=== PATIENT | male | born 1990 | race Caucasian/White ===

== ENCOUNTER 2021-02-23 19:38 | Inpatient (IN) ==
[2021-02-23] MEDS ORDERED: Ondansetron 4 MG/2 ML VIAL IVP ONE ×2 (20:08→20:39)
[2021-02-23] MEDS ORDERED: *HR* FentaNYL (PF) 100 MCG/2 ML VIAL IVP ONE (20:08)
[2021-02-23] MEDS ORDERED: Isovue-370 500 ML BOTTLE IVP ONE (20:11)
[2021-02-23 20:13] LABS: Basophils # 0.1 K/mcL (0.0-0.2); Basophils % 0.4 %; Eosinophils % 0.2 %; Hematocrit 43.2 % (37.5-50.1); Hemoglobin 15.6 g/dL (12.9-16.9); Immature Granulocytes % 0.7 % (0-4); Lymphocytes # 1.5 K/mcL (0.6-4.6); Lymphocytes % 12.3 %; Mean Corpuscular HGB Conc 36.1 g/dL (31.6-35.5); Mean Corpuscular Hemoglobin 33.8 pg (28.0-33.3); Mean Corpuscular Volume 93.7 fL (83.0-100.0); Monocytes # 0.9 K/mcL (0.0-1.3); Monocytes % 6.8 %; Neutrophils # 9.9 K/mcL (1.6-8.9); Platelet Count 274 K/mcL (140-400); Red Blood Count 4.61 M/mcL (4.19-5.50); Red Cell Distribution Width 12.6 % (11.5-14.5); Segmented Neutrophils % 79.6 %; White Blood Count 12.5 K/mcL (4.3-11.1)
[2021-02-23] MEDS ORDERED: 0.9 % Sodium Chloride 1,000 ML IVC ONE (20:21)
[2021-02-23] MEDS ORDERED: Piperacillin/Tazobactam 3.375 GM in 0.9 % Sodium Chloride Mini Bag 100 ML IVPB ONE (20:28)
[2021-02-23 20:35] LABS: Alanine Aminotransferase 98 Units/L (7-52); Albumin 4.9 g/dL (3.5-5.7); Albumin/Globulin Ratio 1.8 (1.1-2.2); Alkaline Phosphatase 48 Units/L (34-104); Aspartate Amino Transferase 81 Units/L (13-39); BUN/Creatinine Ratio 10 (6-26); Bilirubin,Direct 0.1 mg/dL (0.0-0.2); Bilirubin,Indirect 0.6 mg/dL (0.0-1.0); Bilirubin,Total 0.7 mg/dL (0.3-1.0); Blood Urea Nitrogen 13 mg/dL (6-20); Calcium 9.5 mg/dL (8.6-10.3); Carbon Dioxide 18 mEq/L (23-29); Chloride 98 mEq/L (98-107); Globulin 2.7 g/dL (2.4-3.5); Glucose 102 mg/dL (70-105); Osmolality,Calculated 282 (280-300); Sodium 136 mEq/L (136-145); Total Protein 7.6 g/dL (6.4-8.9); eGFR For African Americans > 60 (> 60); eGFR For Non-African Americans > 60 (> 60)
[2021-02-23] MEDS ORDERED: *HR* HYDROmorphone (PF) 1 MG/ML SYRINGE IVP STA (20:39)
[2021-02-23 21:20] LABS: Lipase > 1800 Units/L (11-82)
[2021-02-23] MEDS ORDERED: *HR* HYDROmorphone (PF) 1 MG/ML SYRINGE IVP ONE (21:21)
[2021-02-23] MEDS ORDERED: Naloxone 0.4 MG/ML INJ IVP PRN (22:32)
[2021-02-23] MEDS ORDERED: Ringers Solution, Lactated 1,000 ML IVC SCH (22:45)
[2021-02-23 22:59] LABS: Ethanol < 10 mg/dL (Less than 10)
[2021-02-23 23:12] LABS: Bilirubin,Urine Negative (Negative); Blood,Urine Negative (Negative); Clarity,Urine Clear (Clear); Color,Urine Light-Yellow (Yellow); Glucose,Urine (UA) Normal (Normal); Hyaline Casts,Urine Few per lpf (None Seen); Ketones,Urine Trace mg/dL (Negative); Leukocyte Esterase,Urine Negative (Negative); Mucus,Urine Few per lpf (None-Few); Nitrite,Urine Negative (Negative); Protein,Urine 30 mg/dL (Neg-Trace); RBC,Urine 0-3 per hpf (0-3); Specific Gravity,Urine 1.028 (1.010-1.025); Urobilinogen,Urine Normal (Normal); WBC,Urine 0-3 per hpf (0-3)
[2021-02-23 23:22] LABS: Amphetamine Screen,Urine Negative ng/mL (Cutoff=1000); Barbiturate Screen,Urine Negative ng/mL (Cutoff=200); Benzodiazepines Screen,Urine Negative ng/mL (Cutoff=200); Cannabinoid Screen,Urine Negative ng/mL (Cutoff = 50); Cocaine Screen,Urine Negative ng/mL (Cutoff= 300); Opiate Screen,Urine Negative ng/mL (Cutoff=300); Phencyclidine Screen,Urine Negative ng/mL (Cutoff=25)
[2021-02-23] MEDS: Ketorolac 15 MG/ML VIAL IVP PRN (23:40)
[2021-02-24] MEDS: *HR* HYDROmorphone (PF) 1 MG/ML SYRINGE IVP PRN ×7 (01:24→23:57)
[2021-02-24 02:37] LABS: Basophils % 0.2 %; Eosinophils % 0.1 %; Hematocrit 47.6 % (37.5-50.1); Hemoglobin 16.3 g/dL (12.9-16.9); Immature Granulocytes % 0.6 % (0-4); Lymphocytes # 0.8 K/mcL (0.6-4.6); Lymphocytes % 6.3 %; Mean Corpuscular HGB Conc 34.2 g/dL (31.6-35.5); Mean Corpuscular Hemoglobin 33.2 pg (28.0-33.3); Mean Corpuscular Volume 96.9 fL (83.0-100.0); Monocytes % 8.5 %; Neutrophils # 10.1 K/mcL (1.6-8.9); Platelet Count 239 K/mcL (140-400); Red Blood Count 4.91 M/mcL (4.19-5.50); Red Cell Distribution Width 12.9 % (11.5-14.5); Segmented Neutrophils % 84.3 %
[2021-02-24 02:43] LABS: INR 1.1; Prothrombin Time 12.7 Seconds (9.4-12.1)
[2021-02-24] MEDS ORDERED: Morphine Sulfate 2 MG/ML SYRINGE IVP PRN (02:59)
[2021-02-24] MEDS: Ondansetron 4 MG/2 ML VIAL IVP PRN ×2 (03:07→22:54)
[2021-02-24 03:18] LABS: Alanine Aminotransferase 82 Units/L (7-52); Albumin 4.4 g/dL (3.5-5.7); Albumin/Globulin Ratio 1.8 (1.1-2.2); Alkaline Phosphatase 45 Units/L (34-104); Aspartate Amino Transferase 61 Units/L (13-39); BUN/Creatinine Ratio 10 (6-26); Bilirubin,Total 0.8 mg/dL (0.3-1.0); Blood Urea Nitrogen 12 mg/dL (6-20); Calcium 8.3 mg/dL (8.6-10.3); Carbon Dioxide 19 mEq/L (23-29); Chloride 101 mEq/L (98-107); Chol/HDL Ratio 9.8 (0-4.9); Cholesterol 283 mg/dL (< 200); Globulin 2.5 g/dL (2.4-3.5); Glucose 103 mg/dL (70-105); HDL Cholesterol 29 mg/dL (40-59); Lipase > 1800 Units/L (11-82); Magnesium 1.5 mg/dL (1.6-2.6); Osmolality,Calculated 282 (280-300); Potassium 4.2 mEq/L (3.5-5.1); Sodium 136 mEq/L (136-145); Thyroid Stimulating Hormone 2.625 mcIU/mL (0.340-5.600); Total Protein 6.9 g/dL (6.4-8.9); Triglycerides 1399 mg/dL (< 150); eGFR For African Americans > 60 (> 60); eGFR For Non-African Americans > 60 (> 60)
[2021-02-24] MEDS ORDERED: Prochlorperazine 10 MG/2 ML VIAL IVP PRN (05:12)
[2021-02-24] MEDS ORDERED: Magnesium Sulfate 1 GM/102 ML PIGGYBACK IVPB ONE (05:12)
[2021-02-24] MEDS ORDERED: Insulin Human Regular 100 UNIT in 0.9 % Sodium Chloride 100 ML IV ONE (05:30)
[2021-02-24] MEDS ORDERED: Insulin Human Regular 100 UNIT in 0.9 % Sodium Chloride 100 ML IV SCH (05:30)
[2021-02-24] MEDS: D5% in 0.45% NACL 1,000 ML IVC SCH ×4 (06:26→23:59)
[2021-02-24 07:26] LABS: Hepatitis B Surface Antigen Nonreactive (Nonreactive)
[2021-02-24] MEDS: Piperacillin/Tazobactam 3.375 GM in 0.9 % Sodium Chloride Mini Bag 100 ML IVPB SCH ×2 (07:36→15:27)
[2021-02-24] MEDS: 0.9 % Sodium Chloride 1,000 ML IVC SCH ×2 (07:50→09:36)
[2021-02-24] MEDS ORDERED: *HR* LORazepam 2 MG/ML VIAL IVP ONE ×2 (07:53→20:30)
[2021-02-24 07:55] LABS: Hepatitis C Virus Antibody Nonreactive (Nonreactive)
[2021-02-24 07:56] LABS: Hepatitis B Core IgM Nonreactive (Nonreactive)
[2021-02-24] MEDS: Ketorolac 15 MG/ML VIAL IVP PRN (08:30)
[2021-02-24] MEDS ORDERED: D5% in Water 1,000 ML IVC PRN (08:37)
[2021-02-24] MEDS ORDERED: Dextrose Gel 15 GM/37.5 ML TUBE PO PRN ×2 (08:37)
[2021-02-24] MEDS: *HR* Dextrose 50 % in Water (Vial) 50 ML VIAL IVP PRN ×3 (11:07→19:40)
[2021-02-24 13:32] LABS: BUN/Creatinine Ratio 11 (6-26); Blood Urea Nitrogen 16 mg/dL (6-20); Calcium 6.5 mg/dL (8.6-10.3); Carbon Dioxide 17 mEq/L (23-29); Chloride 107 mEq/L (98-107); Glucose 93 mg/dL (70-105); Osmolality,Calculated 281 (280-300); Potassium 4.1 mEq/L (3.5-5.1); Sodium 135 mEq/L (136-145); eGFR For African Americans > 60 (> 60); eGFR For Non-African Americans 57 (> 60)
[2021-02-24] MEDS ORDERED: *HR* Metoprolol 5 MG/5 ML VIAL IVP ONE (15:30)
[2021-02-24] MEDS: *HR* LORazepam 2 MG/ML VIAL IVP PRN (17:45)
[2021-02-24] MEDS ORDERED: Pantoprazole 40 MG VIAL IVP SCH (18:00)
[2021-02-24] MEDS ORDERED: 0.9 % Sodium Chloride 1,000 ML IVC ONE (18:55)
[2021-02-24] MEDS ORDERED: 0.9 % Sodium Chloride 1,000 ML ONE (18:57)
[2021-02-24] MEDS ORDERED: Ringers Solution, Lactated 1,000 ML ONE (19:34)
[2021-02-24 19:38] LABS: Calcium 6.8 mg/dL (8.6-10.3); Potassium 4.5 mEq/L (3.5-5.1)
[2021-02-24 20:02] LABS: Hematocrit 49.1 % (37.5-50.1); Mean Corpuscular HGB Conc 34.2 g/dL (31.6-35.5); Mean Corpuscular Hemoglobin 33.7 pg (28.0-33.3); Mean Corpuscular Volume 98.4 fL (83.0-100.0); Mean Platelet Volume 10.5 fL (9.4-12.4); Nucleated Red Blood Cells 0.2 /100 WBC (0); Platelet Count 209 K/mcL (140-400); Red Blood Count 4.99 M/mcL (4.19-5.50); Red Cell Distribution Width 13.2 % (11.5-14.5); White Blood Count 8.7 K/mcL (4.3-11.1)
[2021-02-24 20:11] LABS: Hemoglobin 16.8 g/dL (12.9-16.9)
[2021-02-24 20:28] LABS: Alanine Aminotransferase 59 Units/L (7-52); Albumin 3.5 g/dL (3.5-5.7); Albumin/Globulin Ratio 1.8 (1.1-2.2); Alkaline Phosphatase 32 Units/L (34-104); Aspartate Amino Transferase 76 Units/L (13-39); BUN/Creatinine Ratio 7 (6-26); Bilirubin,Total 1.2 mg/dL (0.3-1.0); Blood Urea Nitrogen 20 mg/dL (6-20); Calcium 5.9 mg/dL (8.6-10.3); Carbon Dioxide 14 mEq/L (23-29); Chloride 110 mEq/L (98-107); Chol/HDL Ratio 10.7 (0-4.9); Cholesterol 193 mg/dL (< 200); Glucose 91 mg/dL (70-105); HDL Cholesterol 18 mg/dL (40-59); Osmolality,Calculated 284 (280-300); Potassium 4.5 mEq/L (3.5-5.1); Sodium 136 mEq/L (136-145); Total Protein 5.5 g/dL (6.4-8.9); eGFR For African Americans 33 (> 60); eGFR For Non-African Americans 27 (> 60)
[2021-02-24 20:32] LABS: Large Platelets Present (Not Present); Lymphocytes # 1.4 K/mcL (0.6-4.6); Monocytes # 0.7 K/mcL (0.0-1.3); Neutrophils # 6.6 K/mcL (1.6-8.9); Platelet Estimate Normal (Normal)
[2021-02-24 20:33] LABS: Reactive Lymphocytes Present (Not Present)
[2021-02-24] MEDS ORDERED: Sodium Bicarbonate 150 MEQ in D5% in Water 1,000 ML IVC SCH (20:45)
[2021-02-24 20:53] LABS: Lipase 1418 Units/L (11-82); Triglycerides 1204 mg/dL (< 150)
[2021-02-24] MEDS: Calcium Gluconate 1gm/50mL 1 GM/50 ML BAG IVPB PRN ×2 (20:55→23:56)
[2021-02-24 21:51] LABS: Phosphorous < 1.0 mg/dL (2.7-4.5)
[2021-02-24 22:12] LABS: Hepatitis A Antibody IgM Nonreactive (Nonreactive)
[2021-02-24] MEDS: Ringers Solution, Lactated 1,000 ML IVC SCH (22:42)
[2021-02-24 23:20] LABS: Adenovirus Not Detected (Not Detect); Bordetella Pertussis Not Detected (Not Detect); Chlamydophila pneumoniae Not Detected (Not Detect); Coronavirus 229E Not Detected (Not Detect); Coronavirus HKU1 Not Detected (Not Detect); Coronavirus NL63 Not Detected (Not Detect); Coronavirus OC43 Not Detected (Not Detect); Human Metapneumovirus Not Detected (Not Detect); Human Rhinovirus/Enterovirus Not Detected (Not Detect); Influenza A Subtype 2009 H1 Not Detected (Not Detect); Influenza B Not Detected (Not Detect); Mycoplasma pneumoniae Not Detected (Not Detect); Parainfluenza Virus 1 Not Detected (Not Detect); Parainfluenza Virus 2 Not Detected (Not Detect); Parainfluenza Virus 3 Not Detected (Not Detect); Parainfluenza Virus 4 Not Detected (Not Detect); Respiratory Syncytial Virus Not Detected (Not Detect); SARS-CoV-2 Not Detected (Not Detect)
[2021-02-25 00:01] LABS: VBG Ionized Calcium 0.83 mmol/L (1.15-1.35)
[2021-02-25] MEDS: Piperacillin/Tazobactam 3.375 GM in 0.9 % Sodium Chloride Mini Bag 100 ML IVPB SCH (00:21)
[2021-02-25] MEDS ORDERED: *HR* HYDROmorphone (PF) 1 MG/ML SYRINGE IVP ONE (01:14)
[2021-02-25] MEDS: *HR* LORazepam 2 MG/ML VIAL IVP PRN (01:19)
[2021-02-25 02:31] VITALS: BP 148/96; PULSE 137; TEMP 96.3; O2SAT 98
[2021-02-25] MEDS: Ringers Solution, Lactated 1,000 ML IVC SCH (02:32)
== END 2021-02-25 01:36 | disposition short-term general hospital (02) | DRG 871 ==
LOC: 3ANU 19:38 → EMEROOARM 19:38 → SUATTDRO 22:39 → 3ANU 23:14 → ICNU 02-24 19:37
PROVIDERS: ADMIT Student in an Organized Health Care Education/Training Program; ATTEND Family Medicine